=== PATIENT | male | born 1950 | race Caucasian/White ===

== ENCOUNTER 2016-08-11 01:29 | Inpatient (IN) | payer MEDICARE, OTHER ==
[~2016-08-11] VITALS: Ht 177.8 cm; Wt 58.5 kg
[2016-08-11 02:00] LABS: Basophils # (auto) 0 uL; Basophils % (auto) 0.3 % (0.0-2.0); Eosinophils # (auto) 0 uL; Eosinophils % (auto) 0.7 % (0.0-7.0); Hematocrit 37.4 % (41.0-53.0); Hemoglobin 12.7 g/dL (13.5-17.5); Lymphocytes # (auto) 1.2 uL; Lymphocytes % (auto) 18.4 % (10.0-50.0); Mean Corpuscular Hemoglobin 31.4 pg (28.0-32.0); Mean Corpuscular Hgb Conc. 33.8 g/dL (32.0-36.0); Mean Corpuscular Volume 92.8 fL (80.0-100.0); Mean Platelet Volume 8.6 fL (7.4-10.4); Monocytes # (auto) 0.7 uL; Monocytes % (auto) 11.2 % (0.0-12.0); Neutrophils # (auto) 4.4 uL; Neutrophils % (auto) 69.4 % (37.0-80.0); Platelet Count (auto) 187 10^3/uL (140-450); Red Cell Distribution Width 11.8 % (11.6-16.0); White Blood Cell 6.3 10^3/uL (4.4-10.8)
[2016-08-11 02:21] LABS: BUN/Creatinine Ratio 11.3; Calcium 8.3 mg/dL (8.5-10.1); Magnesium 1.9 mg/dL (1.6-2.6); Potassium 4.1 mmol/L (3.5-5.1)
[2016-08-11 02:23] LABS: Bilirubin, Total 0.9 mg/dL (0.2-1.0)
[2016-08-11] MEDS ORDERED: SODIUM CHLORIDE 0.9% 1,000 ML IV ONE (03:15)
[2016-08-11 03:40] LABS: Urine RBC None Seen /hpf (0 - 3)
[2016-08-11 03:48] LABS: Urine Bilirubin Negative (Negative); Urine Blood Negative /uL (Negative); Urine Color Yellow (Yellow); Urine Glucose Normal (Normal); Urine Nitrite Negative (Negative); Urine Urobilinogen Normal (Negative)
[2016-08-11 03:57] LABS: Urine Ketone 2+ (Negative)
[2016-08-11] MEDS ORDERED: ONDANSETRON HCL 4 MG/2 ML VIAL IV ONE (04:30)
[2016-08-11] MEDS ORDERED: MORPHINE SULFATE 4 MG/ML SYRG IV ONE (04:30)
[2016-08-11] MEDS ORDERED: LACTULOSE 20Gm/30ML SOLN PO ONE (07:00)
[2016-08-11] MEDS ORDERED: SODIUM CHL 3% 500 ML IV ONE (07:00)
[2016-08-11] MEDS ORDERED: ONDANSETRON HCL 4 MG/2 ML VIAL IV PRN (07:00)
[2016-08-11] MEDS ORDERED: MORPHINE SULF INJ 2 MG/ML SYRINGE 1ML IV PRN (07:00)
[2016-08-11] MEDS: SODIUM CHLORIDE 0.9% 1,000 ML IV SCH ×3 (08:54→20:34)
[2016-08-11 09:06] LABS: Vitamin B12 > 2000 pg/mL (211-911)
[2016-08-11 09:09] LABS: Temperature: 21.6 C (20.0-25.0)
[2016-08-11] MEDS: PANTOPRAZOLE SODIUM 40 MG/10 ML VIAL IV SCH (10:27)
[2016-08-11] MEDS: ENOXAPARIN SOD 40 MG/0.4 ML SYRINGE SC SCH (10:27)
[2016-08-11 15:17] LABS: BUN/Creatinine Ratio 11.1; Calcium 7.8 mg/dL (8.5-10.1)
[2016-08-11] MEDS: LACTULOSE 20Gm/30ML SOLN PO SCH (22:00)
[2016-08-11 22:08] VITALS: BP 135/75
[2016-08-11] MEDS ORDERED: SENNA 8.6 MG TAB PO ONE (22:45)
[2016-08-12] VITALS (7 sets, daily range): BP systolic 83–143; BP diastolic 52–67
[2016-08-12 06:05] LABS: Basophils # (auto) 0 uL; Basophils % (auto) 0.4 % (0.0-2.0); Eosinophils # (auto) 0 uL; Eosinophils % (auto) 0.4 % (0.0-7.0); Hematocrit 38.7 % (41.0-53.0); Lymphocytes # (auto) 0.7 uL; Lymphocytes % (auto) 12.3 % (10.0-50.0); Mean Corpuscular Hemoglobin 31.6 pg (28.0-32.0); Mean Corpuscular Hgb Conc. 33.6 g/dL (32.0-36.0); Mean Platelet Volume 9.5 fL (7.4-10.4); Monocytes # (auto) 0.7 uL; Monocytes % (auto) 11.3 % (0.0-12.0); Neutrophils # (auto) 4.6 uL; Neutrophils % (auto) 75.6 % (37.0-80.0); Platelet Count (auto) 200 10^3/uL (140-450); Red Cell Distribution Width 11.8 % (11.6-16.0)
[2016-08-12 06:26] LABS: Albumin 3.5 g/dL (3.4-5.0); BUN/Creatinine Ratio 10.3; Bilirubin, Total 0.8 mg/dL (0.2-1.0); Calcium 8.6 mg/dL (8.5-10.1); Magnesium 2.2 mg/dL (1.6-2.6); Potassium 3.6 mmol/L (3.5-5.1); Total Protein 6.2 g/dL (6.4-8.2)
[2016-08-12] MEDS: ENOXAPARIN SOD 40 MG/0.4 ML SYRINGE SC SCH (10:00)
[2016-08-12] MEDS: PANTOPRAZOLE SODIUM 40 MG/10 ML VIAL IV SCH (10:27)
[2016-08-12] MEDS: SODIUM CHLORIDE 0.9% 1,000 ML IV SCH ×2 (11:52→23:54)
[2016-08-12] MEDS: LEVODOPA W/CARB 25/100MG TABLET PO SCH ×2 (14:02→20:08)
[2016-08-12] MEDS: LACTULOSE 20Gm/30ML SOLN PO SCH (20:08)
[2016-08-13 04:31] VITALS: BP 136/64
[2016-08-13] MEDS: LEVODOPA W/CARB 25/100MG TABLET PO SCH ×2 (05:01→05:08)
[2016-08-13 07:54] VITALS: BP 127/93
[2016-08-13] MEDS: ENOXAPARIN SOD 40 MG/0.4 ML SYRINGE SC SCH (10:00)
[2016-08-13] MEDS: PANTOPRAZOLE SODIUM 40 MG/10 ML VIAL IV SCH (10:28)
== END 2016-08-13 13:32 | disposition home health service (06) | DRG 56 ==
LOC: ER 01:37 → TELE 01:38 → DOU IN ICU 20:50
PROVIDERS: ADMIT Family Medicine; ATTEND Internal Medicine
DX: G20 Parkinson's disease (principal); G93.41 Metabolic encephalopathy; E87.1 Hypo-osmolality and hyponatremia; K59.09 Other constipation; D64.9 Anemia, unspecified; G62.9 Polyneuropathy, unspecified; E83.51 Hypocalcemia; E87.8 Other disorders of electrolyte and fluid balance, not elsewhere classified; K63.4 Enteroptosis; Z82.0 Family history of epilepsy and other diseases of the nervous system; Z90.89 Acquired absence of other organs
CPT/HCPCS: 36415; 70551; 74000; 80048; 80053; 80061; 81001; 82607; 82746; 83690; 83735; 84439; 84443; 84484; 85025; 85049; 87081; 93005; 93306; 94761; 95819; 96361; 96374; 96375; C9113; J2405